=== PATIENT | male | born 1965 | race Two or more races ===

== ENCOUNTER 2024-10-23 01:45 | Inpatient (IN) | payer OTHER ==
[~2024-10-23] VITALS: Ht 175.3 cm; Wt 85.3 kg
[2024-10-23] MEDS ORDERED: ACETAMINOPHEN 500 MG GEL..CAP PO ONE (02:11)
[2024-10-23] MEDS ORDERED: BARIUM SULFATE 450 ML ORAL.SUSP PO ONE (02:32)
[2024-10-23 03:46] LABS: HEMATOCRIT 40.9 % (39.0-48.0); HEMOGLOBIN 14.1 g/dL (13-16.00); MEAN CELL VOLUME 82.7 fL (80.0-100.00); MEAN CORPUSCULAR HEMOGLOBIN 28.6 pg (27.00-32.0); MEAN CORPUSCULAR HGB CONC 34.5 g/dl (32.0-36.0); PLATELET COUNT 136 K/uL (150-450); RED BLOOD COUNT 4.95 M/uL (4.00-6.00); RED CELL DISTRIBUTION WIDTH 14.5 % (11.5-14.5)
[2024-10-23 04:00] LABS: INR 1.24; PARTIAL THROMBOPLASTIN TIME 34.4 SECONDS (22.0-34.0); PROTHROMBIN TIME 13.3 SECONDS (9.0-11.5)
[2024-10-23 04:04] LABS: BILIRUBIN TOTAL 4.18 mg/dL (0.3-1.2); BILIRUBIN,CONJUGATED 1.53 mg/dL (0.0-0.2); BILIRUBIN,UNCONJUGATED 2.65 mg/dL (0.0-0.6); CALCIUM 8.3 mg/dL (8.5-10.1); CREATININE SERUM 1.33 mg/dL (0.70-1.30); GFR 54.85; GLOBULINA 3.7 G/DL (2.4-3.5); POTASSIUM 4.34 mEq/L (3.5-5.1); TOTAL PROTEIN 6.7 gm/dL (6.4-8.2)
[2024-10-23] MEDS ORDERED: PANTOPRAZOLE SODIUM 40 MG/VIAL VIAL IV SCH (09:00)
[2024-10-23] MEDS ORDERED: PIPERACILLIN/TAZOBACTAM SODIUM 3.375 GM VIAL IV ONE ×2 (12:45→21:06)
[2024-10-23] MEDS ORDERED: MEPERIDINE HCL/PF 25 MG/ML VIAL IM PRN (15:00)
[2024-10-23] MEDS ORDERED: IPRATROPIUM BROMIDE 0.5 MG/2.5 ML AMPUL.NEB IH SCH (20:11)
[2024-10-23] MEDS ORDERED: PANTOPRAZOLE SODIUM 40 MG/VIAL VIAL ONE (21:16)
[2024-10-24] MEDS ORDERED: IPRATROPIUM BROMIDE 0.5 MG/2.5 ML AMPUL.NEB IH ONE ×2 (00:16→00:19)
[2024-10-24] MEDS ORDERED: PIPERACILLIN/TAZOBACTAM SODIUM 3.375 GM VIAL IV ONE ×2 (00:16→00:17)
[2024-10-24 06:24] LABS: HEMOGLOBIN 12.4 g/dL (13-16.00); MEAN CELL VOLUME 82.8 fL (80.0-100.00); MEAN CORPUSCULAR HEMOGLOBIN 28.6 pg (27.00-32.0); MEAN CORPUSCULAR HGB CONC 34.6 g/dl (32.0-36.0); RED BLOOD COUNT 4.35 M/uL (4.00-6.00); RED CELL DISTRIBUTION WIDTH 14.9 % (11.5-14.5)
[2024-10-24 06:30] LABS: PLATELET COUNT 115 K/uL (150-450)
[2024-10-24 06:44] LABS: PH,URINE 5.5 (5.0-8.0); URINE APPEARANCE Clear; URINE BILIRRUBIN Negative (NEGATIVE); URINE BLOOD Moderate; URINE COLOR Dark Yellow; URINE GLUCOSE Negative (NEGATIVE); URINE KETONE Trace (NEGATIVE); URINE LEUKOCYTE Negative; URINE NITRATE Negative
[2024-10-24 06:47] LABS: INR 1.16; PARTIAL THROMBOPLASTIN TIME 36.7 SECONDS (22.0-34.0); PROTHROMBIN TIME 12.5 SECONDS (9.0-11.5)
[2024-10-24 06:48] LABS: URINE EPITHELIAL CELLS 22.9 uL (0.0-38.8); URINE RBC 177.6 uL (0.0-20.8); URINE WBC 22.1 uL (0.0-23.2)
[2024-10-24 07:29] LABS: ALBUMIN 2.4 gm/dL (3.4-5.0); BILIRUBIN TOTAL 2.44 mg/dL (0.3-1.2); CALCIUM 7.7 mg/dL (8.5-10.1); CREATININE SERUM 0.93 mg/dL (0.70-1.30); GFR 82.88; GLOBULINA 2.7 G/DL (2.4-3.5); POTASSIUM 4.29 mEq/L (3.5-5.1); TOTAL PROTEIN 5.1 gm/dL (6.4-8.2)
[2024-10-24 07:30] LABS: ALBUMIN 2.3 gm/dL (3.4-5.0); CALCIUM 7.7 mg/dL (8.5-10.1); CHOL HDL RATIO 9.4 (0-5.0); CREATININE SERUM 0.89 mg/dL (0.70-1.30); GFR 87.19; PHOSPHOROUS 2.2 mg/dL (2.5-4.9); POTASSIUM 4.31 mEq/L (3.5-5.1)
[2024-10-24 07:34] LABS: URINE CAST 0.14 uL (0.0-1.40); URINE PROTEIN 100 (NEGATIVE)
[2024-10-24] MEDS ORDERED: 0.9 % SODIUM CHLORIDE 1,000 ML IV SCH ×2 (10:00→11:00)
[2024-10-24] MEDS ORDERED: ENOXAPARIN SODIUM 40 MG/0.4 ML SYRINGE SUBCUTANEO SCH ×2 (10:01→17:00)
[2024-10-24] MEDS ORDERED: FAMOTIDINE/PF 20 MG in 0.9 % SODIUM CHLORIDE 100 ML IV SCH (10:01)
[2024-10-24 10:03] LABS: ABG PH 7.428 (7.35-7.45); ABG PO2 65.2 mmHg (80-100); ABG pCO2 38.6 mmHg (35-45); BASE EXCESS 0.7 mmol/l; BICARBONATE 24.9 mmol/l (23-25); SaO2 93.1 %; Tco2 26.1 mmol/l; allen test SATISFACTORY; o2 35 %; puncture site RADIAL LEFT
[2024-10-24] MEDS ORDERED: METOPROLOL SUCCINATE 100 MG TAB.SR.24H PO SCH (11:56)
[2024-10-24] MEDS ORDERED: SPIRONOLACTONE 25 MG TABLET PO SCH (11:57)
[2024-10-24] MEDS ORDERED: PIPERACILLIN/TAZOBACTAM SODIUM 3.375 GM in 0.9 % SODIUM CHLORIDE 100 ML IV SCH (12:00)
[2024-10-24 12:30] VITALS: BP 127/69; O2SAT 95
[2024-10-24] MEDS ORDERED: MORPHINE SULFATE 2 MG/ML CARTRIDGE IV PRN (13:30)
[2024-10-24] MEDS ORDERED: KETOROLAC TROMETHAMINE 30 MG VIAL IV PRN ×2 (15:45→16:15)
[2024-10-24] MEDS ORDERED: METOCLOPRAMIDE HCL 10 MG in 0.9 % SODIUM CHLORIDE 50 ML IV ONE (15:45)
[2024-10-24 16:00] VITALS: BP 119/67; O2SAT 95
[2024-10-24] MEDS ORDERED: APIXABAN 5 MG TABLET PO SCH (17:00)
[2024-10-24] MEDS ORDERED: METOCLOPRAMIDE HCL 5 MG/ML VIAL IV SCH (17:00)
[2024-10-24] MEDS ORDERED: MORPHINE SULFATE 4 MG/ML CARTRIDGE IV PRN (20:11)
[2024-10-25] VITALS: BP 119/74; O2SAT 96
[2024-10-25 06:39] LABS: HEMATOCRIT 33.9 % (39.0-48.0); HEMOGLOBIN 11.3 g/dL (13-16.00); MEAN CELL VOLUME 85.2 fL (80.0-100.00); MEAN CORPUSCULAR HEMOGLOBIN 28.3 pg (27.00-32.0); MEAN CORPUSCULAR HGB CONC 33.2 g/dl (32.0-36.0); RED BLOOD COUNT 3.98 M/uL (4.00-6.00); RED CELL DISTRIBUTION WIDTH 14.4 % (11.5-14.5)
[2024-10-25 06:52] LABS: PLATELET COUNT 130 K/uL (150-450)
[2024-10-25 07:57] LABS: CALCIUM 7.7 mg/dL (8.5-10.1); CREATININE SERUM 0.74 mg/dL (0.70-1.30); GFR 107.89; POTASSIUM 4.36 mEq/L (3.5-5.1)
[2024-10-25] MEDS ORDERED: ENOXAPARIN SODIUM 40 MG/0.4 ML SYRINGE SUBCUTANEO SCH (09:00)
[2024-10-25] MEDS ORDERED: FAMOTIDINE/PF 20 MG/2 ML VIAL IV SCH (09:00)
[2024-10-25 09:04] VITALS: BP 104/68; O2SAT 92
[2024-10-25 16:00] VITALS: BP 131/71; O2SAT 95
[2024-10-25] MEDS ORDERED: LEVALBUTEROL HCL 0.63 MG/3 ML SOLUTION IH SCH (17:00)
[2024-10-26 00:14] VITALS: BP 12/71; O2SAT 96
[2024-10-26 07:48] VITALS: BP 105/68; O2SAT 96
[2024-10-26 09:43] LABS: HEMATOCRIT 34.4 % (39.0-48.0); HEMOGLOBIN 11.3 g/dL (13-16.00); MEAN CELL VOLUME 85.1 fL (80.0-100.00); MEAN CORPUSCULAR HEMOGLOBIN 27.9 pg (27.00-32.0); MEAN CORPUSCULAR HGB CONC 32.8 g/dl (32.0-36.0); PLATELET COUNT 171 K/uL (150-450); RED BLOOD COUNT 4.04 M/uL (4.00-6.00); RED CELL DISTRIBUTION WIDTH 15.2 % (11.5-14.5)
[2024-10-26 16:00] VITALS: BP 137/87; BP 437/87; O2SAT 96
[2024-10-26 23:43] VITALS: BP 149/61; O2SAT 99
[2024-10-27 06:17] LABS: HEMATOCRIT 30.5 % (39.0-48.0); HEMOGLOBIN 10.3 g/dL (13-16.00); MEAN CELL VOLUME 84.8 fL (80.0-100.00); MEAN CORPUSCULAR HEMOGLOBIN 28.7 pg (27.00-32.0); MEAN CORPUSCULAR HGB CONC 33.9 g/dl (32.0-36.0); PLATELET COUNT 209 K/uL (150-450); RED CELL DISTRIBUTION WIDTH 15.2 % (11.5-14.5)
[2024-10-27 06:44] LABS: BILIRUBIN,CONJUGATED 0.69 mg/dL (0.0-0.2); BILIRUBIN,UNCONJUGATED 0.76 mg/dL (0.0-0.6)
[2024-10-27 06:45] LABS: CALCIUM 7.8 mg/dL (8.5-10.1); CREATININE SERUM 0.6 mg/dL (0.70-1.30); GFR 137.43; POTASSIUM 3.51 mEq/L (3.5-5.1)
[2024-10-27 06:46] LABS: BILIRUBIN TOTAL 1.45 mg/dL (0.3-1.2)
[2024-10-27 09:13] VITALS: BP 123/77; O2SAT 97
[2024-10-27 16:00] VITALS: BP 132/82; O2SAT 94
[2024-10-27] MEDS ORDERED: SODIUM CL 0.9% 100 ML IV.SOLN IV ONE (16:34)
[2024-10-27] MEDS ORDERED: FUROsemide 20 MG/2 ML VIAL IV NR (17:00)
[2024-10-28] VITALS: BP 117/82; BP 118/67; O2SAT 97; O2SAT 98
[2024-10-28 08:20] VITALS: BP 126/79; O2SAT 94
[2024-10-28] MEDS ORDERED: PANTOPRAZOLE SODIUM 40 MG TABLET.DR PO SCH (09:00)
[2024-10-28] MEDS ORDERED: ACETAMINOPHEN 500 MG GEL..CAP PO PRN (12:30)
[2024-10-28] MEDS ORDERED: FUROsemide 20 MG TABLET PO SCH (13:00)
[2024-10-28 16:12] VITALS: BP 121/73; O2SAT 94
[2024-10-29] VITALS: BP 119/61; O2SAT 95
[2024-10-29 08:00] VITALS: BP 112/65; O2SAT 92
[2024-10-29 08:16] LABS: BILIRUBIN TOTAL 0.78 mg/dL (0.3-1.2); CALCIUM 7.9 mg/dL (8.5-10.1); CREATININE SERUM 0.61 mg/dL (0.70-1.30); GFR 134.83; GLOBULINA 3.6 G/DL (2.4-3.5); POTASSIUM 3.63 mEq/L (3.5-5.1); TOTAL PROTEIN 5.6 gm/dL (6.4-8.2)
[2024-10-29 16:05] VITALS: BP 106/82; O2SAT 93
[2024-10-30] VITALS: BP 124/81; O2SAT 95
[2024-10-30 08:50] VITALS: BP 121/69; O2SAT 91
[2024-10-30 16:44] VITALS: BP 105/67; O2SAT 94
[2024-10-31 00:43] VITALS: BP 127/78; O2SAT 97
[2024-10-31] MEDS ORDERED: FAMOTIDINE/PF 20 MG/2 ML VIAL ONE (03:03)
[2024-10-31] MEDS ORDERED: FAMOtidine 10 MG/ML (4ML VIAL) IV PUSH ONE (03:15)
[2024-10-31 08:24] VITALS: BP 137/73; O2SAT 96
[2024-10-31] MEDS ORDERED: PANTOPRAZOLE SODIUM 40 MG/VIAL VIAL IV SCH (09:52)
[2024-10-31] MEDS ORDERED: PIPERACILLIN/TAZOBACTAM SODIUM 3.375 GM in 0.9 % SODIUM CHLORIDE 100 ML IV SCH (12:00)
[2024-10-31 13:25] LABS: HEMOGLOBIN 11.1 g/dL (13-16.00); MEAN CELL VOLUME 83.4 fL (80.0-100.00); MEAN CORPUSCULAR HEMOGLOBIN 28.1 pg (27.00-32.0); MEAN CORPUSCULAR HGB CONC 33.7 g/dl (32.0-36.0); PLATELET COUNT 481 K/uL (150-450); RED BLOOD COUNT 3.96 M/uL (4.00-6.00); RED CELL DISTRIBUTION WIDTH 15.4 % (11.5-14.5)
[2024-10-31 14:38] LABS: ALBUMIN 2.3 gm/dL (3.4-5.0); BILIRUBIN TOTAL 1.06 mg/dL (0.3-1.2); CALCIUM 8.2 mg/dL (8.5-10.1); CREATININE SERUM 0.77 mg/dL (0.70-1.30); GFR 103.05; GLOBULINA 4.6 G/DL (2.4-3.5); POTASSIUM 4.31 mEq/L (3.5-5.1); TOTAL PROTEIN 6.9 gm/dL (6.4-8.2)
[2024-10-31 16:00] VITALS: BP 120/79; O2SAT 93
[2024-10-31 22:10] LABS: PLEURAL FLUID COLOR YELLOW
[2024-10-31 22:11] LABS: PLEURAL FLUID APPEARANCE CLOUDY
[2024-10-31 22:22] LABS: TP PLEURAL FLUID 4.1 g/dl
[2024-10-31 22:45] LABS: MONONUCLEAR 44 %; POLYMORPHONUCLEAR 56 %
[2024-11-01] VITALS: BP 94/62; O2SAT 94
[2024-11-01 08:50] VITALS: BP 116/66; O2SAT 95
[2024-11-01] MEDS ORDERED: PANTOPRAZOLE SODIUM 40 MG TABLET.DR PO SCH (09:00)
[2024-11-01] MEDS ORDERED: TUBERCULIN,PURIF.PROT.DERIV. 10 SKIN.TEST SKIN.TEST ID ONE (15:45)
[2024-11-01 17:13] VITALS: BP 130/64; O2SAT 97
[2024-11-01] MEDS ORDERED: FAMOtidine 20 MG TABLET PO SCH (21:00)
[2024-11-02] VITALS: BP 112/65; O2SAT 94
[2024-11-02 08:20] LABS: HEMATOCRIT 29.6 % (39.0-48.0); HEMOGLOBIN 9.9 g/dL (13-16.00); MEAN CELL VOLUME 82.7 fL (80.0-100.00); MEAN CORPUSCULAR HEMOGLOBIN 27.7 pg (27.00-32.0); MEAN CORPUSCULAR HGB CONC 33.5 g/dl (32.0-36.0); PLATELET COUNT 439 K/uL (150-450); RED BLOOD COUNT 3.58 M/uL (4.00-6.00); RED CELL DISTRIBUTION WIDTH 15.3 % (11.5-14.5)
[2024-11-02] MEDS ORDERED: PANTOPRAZOLE SODIUM 40 MG/VIAL VIAL IV SCH (09:00)
== END 2024-11-02 10:40 | disposition home or self-care (01) | DRG 853 ==
LOC: ER 01:47 → O/R 17:17 → SURH 17:17
PROVIDERS: General Practice; Internal Medicine Critical Care Medicine; Radiology Vascular & Interventional Radiology; Surgery; ADMIT Student in an Organized Health Care Education/Training Program; ATTEND Student in an Organized Health Care Education/Training Program
PROC: 0W9G0ZZ Drainage of Peritoneal Cavity, Open Approach (ICD-10-PCS; 2024-10-23)
PROC: 0DJD0ZZ Inspection of Lower Intestinal Tract, Open Approach (ICD-10-PCS; 2024-10-23)
PROC: BW21YZZ Computerized Tomography (CT Scan) of Abdomen and Pelvis using Other Contrast (ICD-10-PCS; 2024-10-23)
PROC: 0D9670Z Drainage of Stomach with Drainage Device, Via Natural or Artificial Opening (ICD-10-PCS; 2024-10-23)
PROC: 4A12X4Z Monitoring of Cardiac Electrical Activity, External Approach (ICD-10-PCS; 2024-10-23)
PROC: 5A0935A Assistance with Respiratory Ventilation, Less than 24 Consecutive Hours, High Flow/Velocity Cannula (ICD-10-PCS; 2024-10-23)
PROC: 0DTJ0ZZ Resection of Appendix, Open Approach (ICD-10-PCS; principal; 2024-10-23 17:00)
PROC: 3E0F7GC Introduction of Other Therapeutic Substance into Respiratory Tract, Via Natural or Artificial Opening (ICD-10-PCS; 2024-10-24)
PROC: BB24ZZZ Computerized Tomography (CT Scan) of Bilateral Lungs (ICD-10-PCS; 2024-10-25)
PROC: 0W9F0ZZ Drainage of Abdominal Wall, Open Approach (ICD-10-PCS; 2024-10-31)
PROC: 0W9B3ZZ Drainage of Left Pleural Cavity, Percutaneous Approach (ICD-10-PCS; 2024-10-31)
PROC: BB4BZZZ Ultrasonography of Pleura (ICD-10-PCS; 2024-10-31)
PROC: BB4BZZZ Ultrasonography of Pleura (ICD-10-PCS; 2024-11-01)
DX: A41.9 Sepsis, unspecified organism (principal); K35.33 Acute appendicitis with perforation, localized peritonitis, and gangrene, with abscess; N17.9 Acute kidney failure, unspecified; J45.21 Mild intermittent asthma with (acute) exacerbation; J90 Pleural effusion, not elsewhere classified; J98.11 Atelectasis; L76.32 Postprocedural hematoma of skin and subcutaneous tissue following other procedure; T81.41XA Infection following a procedure, superficial incisional surgical site, initial encounter; L02.211 Cutaneous abscess of abdominal wall; R59.0 Localized enlarged lymph nodes; K52.9 Noninfective gastroenteritis and colitis, unspecified; D69.6 Thrombocytopenia, unspecified; B96.20 Unspecified Escherichia coli [E. coli] as the cause of diseases classified elsewhere